=== PATIENT | female | born 1995 | race African-American/Black ===

== ENCOUNTER 2021-03-24 18:54 | Emergency (ER) | payer OTHER, MEDICAID, SELFPAY ==
[2021-03-24 19:12] VITALS: BP 126/81; PULSE 100; RESP 16; TEMP 36.7; O2SAT 99; BMI 30.2
[2021-03-24 19:48] LABS: Appearance Urine HAZY; Color Urine DK YELLOW; Glucose Urine UA NEG (NEG); Leukocyte Esterase Urine NEG (NEG); Nitrite Urine NEG (NEG); Specific Gravity - Urine >= 1.030 (1.005-1.025); Urine Blood NEG (NEG); Urine Ketones NEG (NEG); Urine Protein TRACE MG/DL (NEG-TRACE)
[2021-03-24 19:50] LABS: UPreg QC Valid YES; Urine Pregnancy NEGATIVE (NEGATIVE)
[2021-03-24 19:54] LABS: RBC Urine 0 /HPF (0); WBC Urine 0 /HPF (0-4)
[2021-03-24 19:55] LABS: Bacteria Urine TRACE /LPF; Mucus Urine 3+ /LPF; Squamous Epithelial Cell Urine 2+ /LPF
[2021-03-24 20:02] LABS: Amphetamine Screen Urine Not Detected (Not Detect); Barbiturates, Urine Not Detected (Not Detect); Benzodiazepines Screen Urine Not Detected (Not Detect); Cannabinoid Screen Urine Not Detected (Not Detect); Cocaine Screen Urine Not Detected (Not Detect); Fentanyl, urine Not Detected (Not Detect); Opiate Screen Urine Not Detected (Not Detect); Phencyclidine Screen Urine Not Detected (Not Detect)
[2021-03-24 20:04] LABS: COVID-19 Test Negative (Negative); IDNOW Serial# 9DD0AD1C
--- NOTE | 2021-03-24 20:26 | ED_ITS ---
HPI - Psych General Chief Complaint: Psychiatric Symptoms Stated Complaint: si Time Seen by Provider: 03/24/21 20:19 Source: patient Mode of arrival: ambulatory Limitations: no limitations History of Present Illness HPI Narrative: Patient history of depression and previous suicidal attempt been very depressed lately feels hopelessness with vague suicidal ideation spoke to therapist on the phone who had was a [facility] hospital at this time patient denies any suicidal ideation or plan feels better after coming to the ER Related Data Home Medications Medication Instructions Recorded Confirmed hydroxyzine pamoate 25 mg capsule 25 mg PO TID PRN 03/24/21 03/24/21 valsartan 40 mg tablet 40 mg PO DAILY 03/24/21 03/24/21 Allergies Allergy/AdvReac Type Severity Reaction Status Date / Time No Known Allergies Allergy Verified 03/24/21 19:32 Review of Systems Review of Systems: Constitutional : No Fever, No Chills ENT/Mouth : No Ear Pain, No Nasal Congestion, No sore throat Eyes: No Eye Pain, No Swelling, No Redness Cardiovascular : No Chest Pain, No SOB Respiratory : No Cough, No Sputum, No Dyspnea Gastrointestinal : No Nausea, No Vomiting, No Diarrhea, No Hematochezia, No Melena Genitourinary : No Dysuria, No Urinary Frequency, No Hematuria Musculoskeletal : No Myalgias Skin : No Skin Lesions, No rash Neuro : No Weakness, No Numbness, No Paresthesias, No Dizziness, No Headache Psych : positive Anxiety, positive Depression, positive SI Heme/Lymph: No Lymphadenopathy Endocrine : No Polyuria, No Polydipsia PMFSH Past Medical History Medical History Anxiety Hypertension Social History Social History Advance Directives: No Advance Directives Information Provided: Yes Patient : No Physical Exam Vital Signs: Vital Signs: Last Vital Signs Temp 98.6 F 03/24/21 23:25 Pulse 92 03/24/21 23:25 Resp 16 03/24/21 23:25 BP 129/88 03/24/21 23:25 Pulse Ox 97 03/24/21 23:25 Body Mass Index 30.2 Appearance: Alert. Oriented X3. No acute distress. Eyes: PERRLA, No Nystagmus no pallor or icterus ENT: Pharynx normal. Oral Mucosa moist Neck: Normal inspection. Neck supple. CVS: Normal heart rate and rhythm. Pulses normal. Respiratory: No respiratory distress. Equal air entry bilateral, no wheezing/rales/rhonchi Abdomen: Soft and nontender. Bowel sounds are present, no mass palpable, no CVA tenderness Skin: Skin warm and dry. Normal skin color. Normal skin turgor. Extremities: No lower extremity edema. No calf tenderness Psych: Depression+ negative for suicidal ideation, no hallucination or delusion Neuro: Oriented X 3. No motor deficit. No sensory deficit.No cerebellar signs , cranial nerves II-XII intact MDM - Psych MDM Narrative Medical decision making narrative: Patient with depression feels safe to go home at this time not Section 12 , , care team will be evaluating patient Differential Diagnosis Differential diagnosis: Likely suicidal ideation and depression Lab Data Result diagrams: 03/24/21 22:54 03/24/21 22:54 Labs: Lab Results 03/24/21 03/24/21 03/24/21 Range/Units 19:39 19:39 19:39 WBC (4.8-10.8) X10*3/uL RBC (4.20-5.50) X10*6/uL Hgb (12.0-16.0) g/dl Hct (37-47) % MCV (80-98) fL MCH (27.0-33.0) pg MCHC (31.0-35.0) g/dl RDW (11.0-16.0) % Plt Count (160-400) X10*3/uL MPV (9.4-12.3) fL Immature Gran % (Auto) (0.0-0.4) % Neut % (Auto) (45-73) % Lymph % (Auto) (20-40) % [place] % (Auto) (2-11) % Eos % (Auto) (0-4) % Baso % (Auto) (0-2) % Lymph # (Auto) (1.2-4.9) X10*3/uL [place] # (Auto) (0.1-1.2) X10*3/uL Eos # (Auto) (0.0-0.4) X10*3/uL Baso # (Auto) (0.0-0.2) X10*3/uL Abs Immat Gran (auto) (0.00-0.03) X10*3/uL Absolute Neuts (auto) (2.0-8.3) X10*3/uL Absolute Nucleated RBC (0.0-0.012) X10*3/uL Nucleated RBC % (auto) (0.0-0.2) /100WBC Sodium (135-145) mmol/L Potassium (3.3-5.1) mmol/L Chloride (96-108) mmol/L Carbon Dioxide (22-29) mmol/L Anion Gap (12-20) BUN (9-16) mg/dL Creatinine (0.5-1.4) mg/dL Estim Creat Clear Calc Estimated GFR Random Glucose (60-115) mg/dL Calcium (8.4-10.2) mg/dL Total Bilirubin (0.0-1.0) mg/dL AST (5-31) U/L ALT (0-31) U/L Alkaline Phosphatase (39-117) U/L Total Protein (6.5-8.0) g/dL Albumin (3.5-5.0) g/dL Urine Color Urine Appearance Urine pH (5.0-8.0) Ur Specific [place] (1.005-1.025) Urine Protein (NEG-TRACE) MG/DL Urine Glucose (UA) (NEG) MG/DL Urine Ketones (NEG) MG/DL Urine Blood (NEG) Urine Nitrite (NEG) Ur Leukocyte Esterase (NEG) Urine RBC (0) /HPF Urine WBC (0-4) /HPF Ur Squamous Epith Cells /LPF Urine Bacteria /LPF Urine Mucus /LPF Urine Test NEGATIVE (NEGATIVE) Urine Opiates Screen Not Detected (Not Detect) Urine Fentanyl Screen Not Detected (Not Detect) Ur Barbiturates Screen Not Detected (Not Detect) Ur Phencyclidine Scrn Not Detected (Not Detect) Ur Amphetamines Screen Not Detected (Not Detect) U Benzodiazepines Scrn Not Detected (Not Detect) Urine Cocaine Screen Not Detected (Not Detect) U Marijuana (THC) Screen Not Detected (Not Detect) COVID-19 (WENDI) Negative (Negative) COVID-19 Clin Com See Note 03/24/21 03/24/21 03/24/21 Range/Units 19:40 22:54 22:54 WBC 6.9 (4.8-10.8) X10*3/uL RBC 5.00 (4.20-5.50) X10*6/uL Hgb 12.6 (12.0-16.0) g/dl Hct 39.1 (37-47) % MCV 78.2 L (80-98) fL MCH 25.2 L (27.0-33.0) pg MCHC 32.2 (31.0-35.0) g/dl RDW 14.3 (11.0-16.0) % Plt Count 225 (160-400) X10*3/uL MPV 11.9 (9.4-12.3) fL Immature Gran % (Auto) 0.3 (0.0-0.4) % Neut % (Auto) 63.8 (45-73) % Lymph % (Auto) 24.6 (20-40) % [place] % (Auto) 11.0 (2-11) % Eos % (Auto) 0.0 (0-4) % Baso % (Auto) 0.3 (0-2) % Lymph # (Auto) 1.7 (1.2-4.9) X10*3/uL [place] # (Auto) 0.8 (0.1-1.2) X10*3/uL Eos # (Auto) 0.0 (0.0-0.4) X10*3/uL Baso # (Auto) 0.0 (0.0-0.2) X10*3/uL Abs Immat Gran (auto) 0.02 (0.00-0.03) X10*3/uL Absolute Neuts (auto) 4.4 (2.0-8.3) X10*3/uL Absolute Nucleated RBC 0.000 (0.0-0.012) X10*3/uL Nucleated RBC % (auto) 0.0 (0.0-0.2) /100WBC Sodium 140 (135-145) mmol/L Potassium 4.2 (3.3-5.1) mmol/L Chloride 111 H (96-108) mmol/L Carbon Dioxide 23 (22-29) mmol/L Anion Gap 10 L (12-20) BUN 11 (9-16) mg/dL Creatinine 0.75 (0.5-1.4) mg/dL Estim Creat Clear Calc 102.6 Estimated GFR > 60 Random Glucose 94 (60-115) mg/dL Calcium 8.8 (8.4-10.2) mg/dL Total Bilirubin 0.3 (0.0-1.0) mg/dL AST 12 (5-31) U/L ALT 8 (0-31) U/L Alkaline Phosphatase 50 (39-117) U/L Total Protein 6.4 L (6.5-8.0) g/dL Albumin 4.1 (3.5-5.0) g/dL Urine Color DK YELLOW Urine Appearance HAZY Urine pH 6.0 (5.0-8.0) Ur Specific [place] >= 1.030 H (1.005-1.025) Urine Protein TRACE (NEG-TRACE) MG/DL Urine Glucose (UA) NEG (NEG) MG/DL Urine Ketones NEG (NEG) MG/DL Urine Blood NEG (NEG) Urine Nitrite NEG (NEG) Ur Leukocyte Esterase NEG (NEG) Urine RBC 0 (0) /HPF Urine WBC 0 (0-4) /HPF Ur Squamous Epith Cells 2+ /LPF Urine Bacteria TRACE /LPF Urine Mucus 3+ /LPF Urine Test (NEGATIVE) Urine Opiates Screen (Not Detect) Urine Fentanyl Screen (Not Detect) Ur Barbiturates Screen (Not Detect) Ur Phencyclidine Scrn (Not Detect) Ur Amphetamines Screen (Not Detect) U Benzodiazepines Scrn (Not Detect) Urine Cocaine Screen (Not Detect) U Marijuana (THC) Screen (Not Detect) COVID-19 (WENDI) (Negative) COVID-19 Clin Com Discharge Plan Discharge Clinical Impression: Depression Qualifiers: Depression Type: major depressive disorder Major depression recurrence: recurrent Active/Remission status: currently active Major depression episode severity: moderate Qualified Code(s): F33.1 - Major depressive disorder, recurrent, moderate Patient Disposition: Home, Self-Care Prescriptions: No Action hydroxyzine pamoate 25 mg Capsule 25 mg PO TID PRN (Reason: Anxiety) RF: 0 valsartan 40 mg Tablet 40 mg PO DAILY RF: 0
[2021-03-24 22:58] LABS: MANUAL DIFF FLAG NO
[2021-03-24 22:59] LABS: Basophils Percent Auto 0.3 % (0-2); Hematocrit 39.1 % (37-47); Hemoglobin 12.6 g/dl (12.0-16.0); Imm Gran Abs Auto 0.02 X10*3/uL (0.00-0.03); Imm Gran Pct Auto 0.3 % (0.0-0.4); Lymphocytes Absolute Auto 1.7 X10*3/uL (1.2-4.9); Lymphocytes Percent Auto 24.6 % (20-40); Mean Corpuscular HGB Conc 32.2 g/dl (31.0-35.0); Mean Corpuscular Hemoglobin 25.2 pg (27.0-33.0); Mean Corpuscular Volume 78.2 fL (80-98); Mean Platelet Volume 11.9 fL (9.4-12.3); Monocytes Absolute Auto 0.8 X10*3/uL (0.1-1.2); Neutrophils Absolute Auto 4.4 X10*3/uL (2.0-8.3); Neutrophils Percent Auto 63.8 % (45-73); Platelet Count 225 X10*3/uL (160-400); Red Cell Distribution Width 14.3 % (11.0-16.0); White Blood Count 6.9 X10*3/uL (4.8-10.8)
[2021-03-24 23:13] LABS: Alanine Aminotransferase 8 U/L (0-31); Albumin Level 4.1 g/dL (3.5-5.0); Alkaline Phosphatase 50 U/L (39-117); Anion Gap 10 (12-20); Aspartate Amino Transferase 12 U/L (5-31); Bilirubin Total 0.3 mg/dL (0.0-1.0); Blood Urea Nitrogen 11 mg/dL (9-16); Calcium 8.8 mg/dL (8.4-10.2); Carbon Dioxide 23 mmol/L (22-29); Chloride 111 mmol/L (96-108); Creatinine Clr Calc Pharmacy 102.6; Estimated Glomerular Filt Rate > 60; Glucose Random 94 mg/dL (60-115); Potassium 4.2 mmol/L (3.3-5.1); Sodium 140 mmol/L (135-145); Total Protein 6.4 g/dL (6.5-8.0)
[2021-03-24 23:25] VITALS: BP 129/88; PULSE 92; RESP 16; TEMP 37; O2SAT 97
[2021-03-25] MEDS: diphenhydrAMINE HCL 25 MG TABLET PO (01:01)
--- NOTE | 2021-03-25 02:22 | MHC.CARE ---
[facility] was unable to respond to assess pt, therefore CARE team became involved to determine plan of care. Pt is a 25 year old female who presents to [facility] with EMS, HPD and N co-response clinician Nahum Cedeño. According to MALINA and Nahum, pt endorsed SI during a telehealth session with her therapist. [facility] and PD conducted a well-being check on pt, they were outside of the home knocking for quite some time before pt opened the door. Pt reported she was watching TV. Pt was not pleased with having to go to the hospital however went voluntarily. On scene pt did not deny making SI statements. Pt arrives to [facility], she has been calm and cooperative throughout her time in the ED. She requests to leave as she has to return to work tomorrow and does not want to loose her job. 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 Pt is unknown to [facility], despite interaction today. 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 Pt informs me that she was recently psychiatrically hospitalized at [facility] in [facility]. Pt reports she has a hx of depression, anxiety and SI but has no hx of attempts which is confirmed by her mother. She reports she has a hx of being in and out of therapy because she was adopted . She stated she went IP three months ago due to SI no plan. Pt denies making suicidal statements to her therapist and states she was expressing her frustration. She shares she never expressed a plan or anything significant. When telling pt that her mother is also pretty concerned about her she states My mom is annoying me right now. She is overbearing because of what happened to my sister and she is telling everyone in my building to watch out for me . Of note, pt's sister committed suicide 6 months ago. Pt's mother reports that pt was very close to her sister and pt has been taking her loss extremely hard. Pt's mother shares that they communicate every day and pt has been making vague statements all the time, she states she suspects pt will not disclose a plan or more information to her of the fear mom might do something. Pt is very upset at mom and upset that she is here right now. Pt's mother states that therapist told her that pt had been texting her and gave her a list of disturbing things about not wanting to be alive, what is left for me, why should I even be alive . Pt's mother also reports she lives in [place], pt just moved here to [place] is renting a room and has no one here she knows. pt's mother states pt is getting herself to work every day but she is concerned about pt's medications and that pt is not sleeping. pt's mother told therapist who told [facility] that she thinks pt wants to suicide by copier field service technician. Pt reports to t/w that she was IP three months ago for SI, no plan and that she was given medications but since her move she hasn't been able to refill her medications. She reports she ran out of them and her current prescriber is not a psychiatrist. She states she was on lorezapam for anxiety however due to current provider not feeling comfortable with medication she changed medication to hydroxyzine which has not been helpful for pt. Pt denies current SI/HI. Does not appear to have any psychotic sx's. Her insight, judgment appears to be fair. Her affect is flat, guarded. No eye contact, appears depressed but also upset she is here. Focused on going home. T/W contacted mom who provided above information. T/W contacted [facility] crisis team to explore further why she was admitted psychiatrically and to gather any hx, however they reported they would have a clinician follow up tomorrow. It is my clinical opinion that pt presents with limited natural supports in the community, she doesn't appear to be on her medications/no psychiatrist due to recent move, she doesn't have any family here in [facility], mother and therapist are concerned, increase in depression/poor sleep and recent loss of her sister by suicide that pt is currently grieving from. Pt presents with minimal protective factors at this time. Pt will benefit from a follow up by CARE team during business hours that way team can contact therapist/blast furnace auxiliaries supervisor, previous psychiatrist if available, [facility] to gather d/c or presenting information,and or boyfriend if necessary to obtain further information around pt's hx and risk. T/W is unable to come to a disposition at this time due to lack of available information and unable to connect with collaterals. I believe after CARE team is able to speak to pt's therapist or blast furnace auxiliaries supervisor, this information will determine pt's disposition. CARE shipping team leader aware and available and will determine if psychiatry involvement is necessary. ? Pt's mother Elsa [phone] Pts therapist Theresa Fischer [phone] ([facility]) Therapist blast furnace auxiliaries supervisor Maynor Lizama [phone] ([facility]) * pt's therapist is out of [facility] and mom reports previous psychiatrist is from same agency. According to mom pt's therapist is on vacation as of this afternoon and we will need to contact her blast furnace auxiliaries supervisor at above number. * Per Patric, Pt had a good talk with boyfriend, he may be a good contact in the morning as well.
--- NOTE | 2021-03-25 06:22 | PC.NURSE ---
Patient slept through the night, no distress observed/reported, patient believes she is being held here against her will, care team attempted to assess the patient, unable to reach therapist who called crises, MARGE F/U by care team, patient was made aware of the situation expressed her frustration towards her mother, patient alert and oriented x 4, med compliant, behavior appropriate, will continue to monitor.
--- NOTE | 2021-03-25 09:08 | PC.NURSE ---
[facility] at bedside to evaluate pt
--- NOTE | 2021-03-25 09:28 | PC.NURSE ---
plan for dc, md andria gomez
== END 2021-03-25 09:37 | disposition home or self-care (01) ==
PROVIDERS: Emergency Provider Internal Medicine
DX: F33.1 Major depressive disorder, recurrent, moderate (principal); R45.851 Suicidal ideations; I10 Essential (primary) hypertension; Z20.822 Contact with and (suspected) exposure to COVID-19; Z79.899 Other long term (current) drug therapy
CPT/HCPCS: 36415; 80053; 80307; 81001; 81025; 85025; 87635; 99284; Q0163